=== PATIENT | female | born 1985 | race Caucasian/White ===

== ENCOUNTER 2018-04-25 20:05 | Emergency (ER) | END 2018-04-25 22:39 | disposition home or self-care (01) ==

== ENCOUNTER 2018-12-09 17:32 | Emergency (ER) | payer MEDICAID ==
[~2018-12-09] VITALS: Ht 157.5 cm; Wt 77.0 kg
[~2018-12-09 17:32] MED LIST: IBUP-1542 PO
[2018-12-09 17:39] VITALS: BP 125/71; PULSE 80; RESP 16; Ht 157.5 cm; Wt 77.0 kg
[2018-12-09] MEDS ORDERED: KETOROLAC 30 MG INJ IM STA (18:28)
--- NOTE | 2018-12-09 18:31 | ERD ---
ER Documentation Chief Complaint Chief Complaint LOWER BACK PAIN X 2 DAYS. DENIES ANY INJURY HPI 33-year-old female presents with lower back pain that radiates down her bilateral lower extremities for the past 2 days. She states it feels like a warmth. She is been taking 400 mg of Motrin which is not helping. She denies any dysuria hematuria or frequency. She states she feels like it gives her a fever at times. No nausea or vomiting. No injury or trauma. No bowel or bladder incontinence. ROS All systems reviewed and are negative except as per history of present illness. FmHx Family History: No diabetes Physical Exam Vitals Vital Signs Date Temp Pulse Resp B/P (MAP) Pulse Ox O2 O2 Flow FiO2 Time Delivery Rate 12/09/18 97.6 80 16 125/71 99 17:39 (89) Physical Exam INITIAL VITAL SIGNS: Reviewed by me GENERAL: Awake, alert and oriented x 4, well appearing, nontoxic, speaking in full sentences. No acute distress HEAD: Atraumatic NECK: Supple. No masses. Full range of motion. No meningismus. No midline tenderness. RESPIRATORY: Clear to auscultation bilaterally. Symmetric chest wall rise. No wheezing or rales. No accessory muscle use. CV: Regular rate and rhythm. No murmurs, rubs, or gallops. ABDOMEN: Soft, non-distended. Nontender. Negative [place]. Negative McBurneys point tenderness. No CVA tenderness bilaterally. No guarding. No rebound. Back Exam: Skin: No bruising or rash Compartments: Soft Motor: Normal flexion and extension of bilateral hip/knee/ankle/foot Sensation: Intact to light touch throughout Bones: No midline TTP Procedures/MDM The differential diagnosis includes but is not limited to muscle strain, ligament strain, contusion, arthritis, discogenetic disease, non- musculoskeletal, cauda equina syndrome, cord compression, abscess and others. Patient has no red flags. She has no urinary symptoms. She is ambulatory neurovascular intact. There is no trauma. She is given a Toradol injection here and discharged with ibuprofen and Flexeril and tramadol. Patient counseled regarding my diagnostic impression and care plan. Prior to discharge all questions answered. Pt agrees with treatment plan and understands strict return precautions. Pt is instructed to follow up with primary care provider within 24- 48 hours. Precautionary instructions provided including instructions to return to the ER if not improving or for any worsening or changing symptoms or concerns. Departure Diagnosis: Primary Impression: Back pain Condition: Stable MAIRA OLIVA PA-C Dec 09, 2018 18:31
== END 2018-12-09 18:50 | disposition home or self-care (01) ==
LOC: MERGE 17:32 → FTE 17:32
DX: M54.5 Low back pain (principal)
CPT/HCPCS: 81025; 96372; J1885; Z7502

== ENCOUNTER 2019-02-28 11:05 | Emergency (ER) | payer MEDICAID ==
[~2019-02-28] VITALS: Wt 81.3 kg
[~2019-02-28 11:05] MED LIST changes: +CYCL10TA7 PO; +IBUP800T48 PO; +TRAM50TA PO
[2019-02-28 11:09] VITALS: BP 115/80; PULSE 71; RESP 18
[2019-02-28] MEDS ORDERED: KETOROLAC 30 MG INJ IM STA (11:23)
[2019-02-28] MEDS ORDERED: NAPR-985 PO (12:02)
[2019-02-28] MEDS ORDERED: CYCL10TA7 PO (12:02)
--- NOTE | 2019-02-28 12:10 | ERD ---
ER Documentation Chief Complaint Chief Complaint LOWER BACK PAIN WITH FEVER HPI Patient is a 33-year-old female with no past medical history presents the ER for concerns of lower back pain radiating down both her legs for the last 3 weeks. Patient denies any falls or trauma. 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 Patient denies any hematuria or dysuria. Patient was seen here 1 month ago for similar symptoms and states the medication she was given did help with the pain. Patient states yesterday she had tactile fevers however she does not have any fevers at this time. Patient denies any chest pain, shortness of breath, URI symptoms. Patient denies any drug use. No nausea, vomiting or abdominal pain or diarrhea. ROS All systems reviewed and are negative except as per history of present illness. Medications Home Meds Active Scripts Naproxen* (Naprosyn*) 500 Mg Tablet, 500 MG PO BID PRN for PAIN AND/OR INFLAMMATION, #30 TAB Prov:SUSANNE AGUAYO PA-C 02/28/19 Cyclobenzaprine Hcl* (Cyclobenzaprine Hcl*) 10 Mg Tablet, 10 MG PO TID, #15 TAB Prov:SUSANNE AGUAYO PA-C 02/28/19 Tramadol Hcl* (Ultram*) 50 Mg Tablet, 50 MG PO Q6H PRN for PAIN, #20 TAB Prov:MAIRA OLIVA PA-C 12/09/18 Ibuprofen* (Motrin*) 800 Mg Tab, 800 MG PO Q6, #30 TAB Prov:MAIRA OLIVA PA-C 12/09/18 Cyclobenzaprine Hcl* (Cyclobenzaprine Hcl*) 10 Mg Tablet, 10 MG PO BID, #15 TAB Prov:MAIRA OLIVA PA-C 12/09/18 Ibuprofen* (Motrin*) 600 Mg Tab, 600 MG PO Q6, #30 TAB Prov:SUSANNE AGUAYO PA-C 04/25/18 Allergies Allergies: Coded Allergies: No Known Allergy (Unverified , 12/11/18) PMhx/Soc Medical and Surgical Hx: pt denies Medical Hx History of Surgery: Yes (, appendectomy) Anesthesia Reaction: No Hx Alcohol Use: No Hx Substance Use: No Hx Tobacco Use: No Smoking Status: Never smoker FmHx Family History: No diabetes Physical Exam Vitals Vital Signs Date Temp Pulse Resp B/P (MAP) Pulse Ox O2 O2 Flow FiO2 Time Delivery Rate 02/28/19 98.3 71 18 115/80 99 11:09 (92) Physical Exam GENERAL: Well-developed, well-nourished female. Appears in no acute distress. Speaking in full sentences. HEAD: Normocephalic, atraumatic. EYES: Pupils are equally reactive bilaterally. EOMs grossly intact. No conjunctival erythema. ENT: Moist mucous membranes. No uvula deviation. No kissing tonsils. NECK: Supple. No meningismus. Normal range of motion of the neck. LUNG: Clear to auscultation bilaterally. No rhonchi, wheezing, rales or coarse breath sounds. HEART: Regular rate and rhythm. No murmurs, rubs or gallops. ABDOMEN: No scars, ecchymosis or rashes noted. Soft, nontender, and nondistended. Positive bowel sounds in all four quadrants. No rebound tenderness, no guarding. (-) McBurney's point tenderness. No CVA tenderness. BACK: No midline tenderness. Tender to palpation of bilateral lumbar paraspinal muscles. Positive straight leg raise bilaterally. EXTREMITIES: Equal pulses bilaterally. No peripheral clubbing, cyanosis or edema. No unilateral leg swelling. NEUROLOGIC: Alert and oriented. Moving all four extremities without any difficulty. Normal speech. Steady gait. SKIN: Normal color. Warm and dry. No rashes or lesions. Results 24 hrs Laboratory Tests Test 02/28/19 11:37 02/28/19 11:38 Bedside Urine pH (LAB) 6.0 Bedside Urine Protein (LAB) Negative Bedside Urine Glucose (UA) Negative Bedside Urine Ketones (LAB) Negative Bedside Urine Blood 1+ Bedside Urine Nitrite (LAB) Negative Bedside Urine Leukocyte Esterase (L Negative POC Beta HCG, Qualitative NEGATIVE Current Medications Medications Dose Sig/Ignacio Start Time Status Last (Trade) Ordered Route PRN Stop Time Admin Dose Reason Admin Ketorolac 30 mg ONCE STAT 02/28/19 DC 02/28/19 Tromethamine IM 11:23 11:46 (Toradol) 02/28/19 11:24 Procedures/MDM MEDICAL DECISION MAKING: This is a 33-year-old female presents the ER for concerns of lower back pain x3 weeks.. Vital signs were reviewed. Patient was afebrile. Patient denied any saddle anesthesia, urinary incontinence, bowel incontinence, night pain or recent trauma. Given that patient during falls or trauma, I do not feel that x- ray imaging are indicated at this time. Patient was given Toradol. Patient reported improvement in pain. UA was negative for infection. Urine test was negative. Patient likely has musculoskeletal pain. Patient will be discharged home with muscle relaxant and naproxen. Patient advised not to take lesser extent when driving or operating any machinery. Patient agreeable with plan. Low suspicion for cauda equine syndrome, spinal fractures, epidural abscess, spinal metastases, osteomyelitis, aortic dissection, ruptured or leak ing AA, DJD, pyelonephritis or nephrolithiasis. PRESCRIPTIONS: Cyclobenzaprine Naproxen DISCHARGE: At this time, patient is stable for discharge and outpatient management. RICE therapy and ROM exercises were advised to avoid stiffness. I have instructed the patient to follow-up with his/her primary care physician in 1-2 days. I have discussed with the patient the possibility of needing to see an customer engineering specialist for further workup and imaging if the pain persists. I have instructed the patient to promptly return to the ER for any new or worsening symptoms including increased pain, swelling, warmth, urinary incontinence, stool incontinence, weakness or numbness. The patient and/or family expressed understanding of and agreement with this plan. All questions were answered. Home care instructions were provided. Disclaimer: Inadvertent spelling and grammatical errors are likely due to EHR/dictation software use and do not reflect on the overall quality of patient care. Also, please note that the electronic time recorded on this note does not necessarily reflect the actual time of the patient encounter. Departure Diagnosis: Primary Impression: Lower back pain Chronicity: unspecified Back pain laterality: unspecified Sciatica presence: unspecified whether sciatica present Qualified Codes: M54.5 - Low back pain Condition: Fair Patient Instructions: Back Pain (Acute Or Chronic) Referrals: COMMUNITY CLINICS YOU HAVE RECEIVED A MEDICAL SCREENING EXAM AND THE RESULTS INDICATE THAT YOU DO NOT HAVE A CONDITION THAT REQUIRES URGENT TREATMENT IN THE EMERGENCY DEPARTMENT. FURTHER EVALUATION AND TREATMENT OF YOUR CONDITION CAN WAIT UNTIL YOU ARE SEEN IN YOUR DOCTORS OFFICE WITHIN THE NEXT 1-2 DAYS. IT IS YOUR RESPONSIBILITY TO MAKE AN APPOINTMENT FOR FOLOW-UP CARE. IF YOU HAVE A PRIMARY DOCTOR --you should call your primary doctor and schedule an appointment IF YOU DO NOT HAVE A PRIMARY DOCTOR YOU CAN CALL OUR PHYSICIAN REFERRAL HOTLINE AT IF YOU CAN NOT AFFORD TO SEE A PHYSICIAN YOU CAN CHOSE FROM THE FOLLOWING [facility] [address] [facility] [address] [place] [facility] [address] [facility] [address] [facility] [address] [facility]. [facility] [address] [facility]. [facility] YOU HAVE RECEIVED A MEDICAL SCREENING EXAM AND THE RESULTS INDICATE THAT YOU DO NOT HAVE A CONDITION THAT REQUIRES URGENT TREATMENT IN THE EMERGENCY DEPARTMENT. FURTHER EVALUATION AND TREATMENT OF YOUR CONDITION CAN WAIT UNTIL YOU ARE SEEN IN YOUR DOCTORS OFFICE WITHIN THE NEXT 1-2 DAYS. IT IS YOUR RESPONSIBILITY TO MAKE AN APPOINTMENT FOR FOLOW-UP CARE. IF YOU HAVE A PRIMARY DOCTOR --you should call your primary doctor and schedule and appointment IF YOU DO NOT HAVE A PRIMARY DOCTOR YOU CAN CALL OUR PHYSICIAN REFERRAL HOTLINE AT . IF YOU CAN NOT AFFORD TO SEE A PHYSICIAN YOU CAN CHOSE FROM THE FOLLOWING [facility]: [facility] [place] [address] [place] [address] [facility] [address] [place] [address] [facility] [address] [place] [address] Additional Instructions: Llame al doctor MAANA y eva jonatan CRISTIANE PARA DENTRO DE 1-2 BELL.Dgale a la secretaria que nosotros le instruimos hacer esta cristiane.Avise o llame si tamayo condicin se empeora antes de la cristiane. Regresa aqui si peor o no mejor. SUSANNE AGUAYO PA-C February 28, 2019 12:10
== END 2019-02-28 12:50 | disposition home or self-care (01) ==
LOC: FTE 11:05
DX: M54.5 Low back pain (principal)
CPT/HCPCS: 81025; 96372; J1885; Z7502; 81003